=== PATIENT | female | born 2000 | race Caucasian/White ===

== ENCOUNTER → 2023-02-27 | Outpatient (REF) | payer BC ==
[2023-02-27 17:19] LABS: APPEARANCE, URINE CLEAR (CLEAR); BACTERIA, URINE AUTO NEGATIVE (NEGATIVE); BILIRUBIN, URINE AUTO NEGATIVE (NEGATIVE); BLOOD, URINE BLOOD NEGATIVE (NEGATIVE); COLOR, URINE STRAW (YELLOW); GLUCOSE, URINE (UA) AUTO NEGATIVE (NEGATIVE); KETONE, URINE AUTO NEGATIVE (NEGATIVE); LEUKOCYTE ESTERASE, URINE AUTO NEGATIVE (NEGATIVE); NITRITE, URINE AUTO NEGATIVE (NEGATIVE); PROTEIN, URINE AUTO NEGATIVE (NEGATIVE); RBC, URINE AUTO 0 /HPF (0-3); SPECIFIC GRAVITY URINE AUTO 1.008 (1.002-1.035); SQUAMOUS EPITHELIAL CELL UR AU 0 /HPF (0-6); UROBILINOGEN, URINE AUTO 0.2 mg/dL (0.0-2.0); WBC, URINE AUTO 0 /HPF (0-3)
[2023-02-27 17:52] LABS: BASO # 0.1 10^3/uL (0.0-0.2); BASO % 1.2 % (0.0-1.0); EOS # 0.3 10^3/uL (0.0-0.5); EOS % 4.7 % (0.0-3.0); HEMATOCRIT 40.5 % (36.0-47.0); HEMOGLOBIN 13.4 g/dl (12.0-15.5); LYMPH # 2.6 10^3/uL (1.5-5.0); LYMPH % 35.9 % (24.0-44.0); MEAN CORPUSCULAR HEMOGLOBIN 29.2 pg (27.0-33.0); MEAN CORPUSCULAR HGB CONC 33.1 g/dl (32.0-36.5); MEAN CORPUSCULAR VOLUME 88.2 fl (80.0-96.0); MONO # 0.6 10^3/uL (0.0-0.8); MONO % 7.7 % (2.0-8.0); NEUTROPHILS # 3.6 10^3/uL (1.5-8.5); NEUTROPHILS % 50.4 % (36.0-66.0); PLATELET COUNT, AUTOMATED 306 10^3/uL (150-450); RED BLOOD COUNT 4.59 10^6/uL (4.00-5.40); WHITE BLOOD COUNT 7.2 10^3/uL (4.0-10.0)
[2023-02-27 17:58] LABS: CREATININE,RANDOM URINE 58.3 MG/DL
[2023-02-27 18:01] LABS: TOTAL PROTEIN,RANDOM URINE < 6.0 MG/DL (0.0-14.0)
[2023-02-27 18:10] LABS: C REACTIVE PROTEIN QUANTITATIV < 0.40 MG/DL (<1.0); LDH LACTATE DEHYDROGENASE 175 U/L (120-246)
[2023-02-27 18:11] LABS: ALKALINE PHOSPHATASE 43 U/L (46-116); ALT/SGPT 21 U/L (7.0-40); AST/SGOT 14 U/L (<34); BILIRUBIN,TOTAL 0.4 MG/DL (0.3-1.2); BLOOD UREA NITROGEN 13 MG/DL (9-23); CALCIUM LEVEL 8.8 MG/DL (8.5-10.1); CARBON DIOXIDE LEVEL 26 MMOL/L (20-31); CHLORIDE LEVEL 109 MMOL/L (98-107); CPK CREATINE PHOSPHOKINASE 94 U/L (34-145); CREATININE FOR GFR 0.93 MG/DL (0.55-1.30); GLOMERULAR FILTRATION RATE > 60.0 (>60); GLUCOSE, FASTING 79 MG/DL (60-100); SODIUM LEVEL 142 MMOL/L (136-145); TOTAL PROTEIN 6.9 G/DL (5.7-8.2)
[2023-02-27 18:12] LABS: COMPLEMENT C3 111.2 MG/DL (82.0-160.0); COMPLEMENT C4 23.9 MG/DL (12-36)
[2023-02-27 18:29] LABS: ERYTHROCYTE SEDIMENTATION RATE 9 mm/hr (0-20)
== END ==
LOC: M SFHCRHEU 14:20
PROVIDERS: ATTEND Internal Medicine Rheumatology
DX: R76.8 Other specified abnormal immunological findings in serum (principal); R21 Rash and other nonspecific skin eruption; R53.83 Other fatigue; M79.10 Myalgia, unspecified site

== ENCOUNTER 2024-07-27 10:35 | Inpatient (IN) | payer BC ==
[~2024-07-27] VITALS: Ht 160 cm; Wt 85.0 kg
[2024-07-27] VITALS (14 sets, daily range): BP systolic 114–137; BP diastolic 65–86; O2SAT 98–99
[2024-07-27] MEDS: **PENDING PCN ENTRY XX SCH (09:00)
[2024-07-27] MEDS ORDERED: OXYTOCIN DRIP 30 UNITS in IV 1 EA IV PRN (10:50)
[2024-07-27] MEDS ORDERED: METHYLERGONOVINE MALEATE 0.2MG/ML 1ML VIAL IM PRN (10:50)
[2024-07-27] MEDS ORDERED: TRANEXAMIC ACID INJection 1,000 MG in NS 100 ML IV PRN (10:50)
[2024-07-27] MEDS ORDERED: CARBOPROST TROMETHAMINE 250 MCG/ML AMP IM PRN (10:50)
[2024-07-27] MEDS ORDERED: FERR325T3 PO (10:51)
[2024-07-27] MEDS ORDERED: OMEP10CASR PO (10:51)
[2024-07-27] MEDS ORDERED: PRENTAB9 PO (10:51)
[2024-07-27] MEDS: PENICILLIN G POTASSIUM 5 MU IV 5 MU in DEXTROSE 5% (D5W) MINI-BAG PLU 100 ML IV STA (11:06)
[2024-07-27] MEDS ORDERED: LR 1,000 ML IV ONE (11:15)
[2024-07-27] MEDS: LR 1,000 ML IV ONE (11:22)
[2024-07-27 11:38] LABS: BASO # 0.1 10^3/uL (0.0-0.2); BASO % 0.3 % (0.0-1.0); HEMATOCRIT 38.6 % (36.0-47.0); HEMOGLOBIN 13.1 g/dl (12.0-15.5); LYMPH # 1.7 10^3/uL (1.5-5.0); MEAN CORPUSCULAR HEMOGLOBIN 29.5 pg (27.0-33.0); MEAN CORPUSCULAR HGB CONC 33.9 g/dl (32.0-36.5); MEAN CORPUSCULAR VOLUME 86.9 fl (80.0-96.0); MONO # 0.7 10^3/uL (0.0-0.8); MONO % 3.1 % (2.0-8.0); NEUTROPHILS % 87.9 % (36.0-66.0); PLATELET COUNT, AUTOMATED 314 10^3/uL (150-450); RED BLOOD COUNT 4.44 10^6/uL (4.00-5.40); WHITE BLOOD COUNT 21.6 10^3/uL (4.0-10.0)
[2024-07-27] MEDS: LR 1,000 ML IV SCH (12:07)
[2024-07-27] MEDS ORDERED: ONDANSETRON 4MG 2ML VIAL IV PRN (12:15)
[2024-07-27] MEDS ORDERED: EPIDURAL/PCA KEYS XX PRN (12:15)
[2024-07-27] MEDS: FENTANYL/ROPIVACAINE/NACL BAG 100 ML EPIDURAL SCH (12:15)
[2024-07-27] MEDS ORDERED: ePHEDrine SULFATE 25 MG/5 ML(5MG/ML) SYRINGE IVP PRN (12:15)
[2024-07-27] MEDS ORDERED: NALOXONE INJ 0.4MG/1ML VIAL IV PRN (12:15)
[2024-07-27] MEDS ORDERED: diphenhydrAMINE 50MG/ML VIAL IV PRN (12:15)
[2024-07-27] MEDS ORDERED: LR 500 ML IV PRN (12:15)
[2024-07-27] MEDS: OXYTOCIN DRIP 30 UNITS in IV 1 EA IV PRN (12:32)
[2024-07-27] MEDS: LIDOCAINE 1% MDV 20ML VIAL INFIL PRN (12:32)
[2024-07-27 12:33] LABS: CORD GAS ABE V -4.7; CORD GAS HCO3 V 19.9 MMOL/L; CORD GAS O2 SAT V 54.2 %; CORD GAS PCO2 V 36.1 mmHg; CORD GAS PH V 7.359 UNITS; CORD GAS SBC V 19.5 MMOL/L
[2024-07-27 12:33] LABS: HIV 1&2 SCREEN NEGATIVE (NEGATIVE)
[2024-07-27 12:34] LABS: CORD GAS ABE A -5.8; CORD GAS HCO3 A 21.7 MMOL/L; CORD GAS O2 SAT A 45.8 %; CORD GAS PCO2 A 49.8 mmHg; CORD GAS PH A 7.258 UNITS; CORD GAS PO2 A 22.4 mmHg; CORD GAS SBC A 18.4 MMOL/L; CORD GAS TCO2 A 23.3 MMOL/L
[2024-07-27 12:41] LABS: HEPATITIS C VIRUS ABY INDEX < 0.02 INDEX (<0.8)
[2024-07-27] MEDS ORDERED: METHYLERGONOVINE MALEATE 0.2 MG TAB PO PRN (12:45)
[2024-07-27] MEDS ORDERED: RHOGAM 300MCG (1500IU) INJ IM SCH (12:45)
[2024-07-27] MEDS ORDERED: DOCUSATE SODIUM 100MG CAPSULE PO PRN (12:45)
[2024-07-27] MEDS ORDERED: DIBUCAINE 1% OINTMENT 30GM TOP PRN (12:45)
[2024-07-27] MEDS: ACETAMINOPHEN 500 MG TAB PO PRN (13:13)
[2024-07-27] MEDS ORDERED: PEN G POT 3,000,000 UNIT/50 ML 3,000,000 UNIT in IV 1 EA IV SCH (15:10)
[2024-07-28 06:00] VITALS: BP 111/69; O2SAT 99
[2024-07-28] MEDS: PRENATAL VITAMINS CHEWABLE TABLET PO SCH (07:59)
[2024-07-28 17:50] VITALS: BP 114/74; O2SAT 99
[2024-07-29 05:58] VITALS: BP 102/64; O2SAT 99
[2024-07-29] MEDS: MEASLES,MUMPS,RUBELLA VACCINE INJ (MMR-II) SC.IMMUN ONE (07:22)
[2024-07-29] MEDS: IBUPROFEN 800 MG TAB PO PRN (09:16)
== END 2024-07-29 12:00 | disposition home or self-care (01) | DRG 560 ==
LOC: M LDO 10:35 → M LDI 11:06 → M OBS 15:10
PROVIDERS: ADMIT Specialist; ATTEND Specialist
PROC: 10E0XZZ Delivery of Products of Conception, External Approach (ICD-10-PCS; principal; 2024-07-27)
PROC: 0HQ9XZZ Repair Perineum Skin, External Approach (ICD-10-PCS; 2024-07-27)
DX: O42.113 Preterm premature rupture of membranes, onset of labor more than 24 hours following rupture, third trimester (principal); O60.14X0 Preterm labor third trimester with preterm delivery third trimester, not applicable or unspecified; Z37.0 Single live birth; Z3A.34 34 weeks gestation of pregnancy; O70.0 First degree perineal laceration during delivery